=== PATIENT | male | born 1985 | race Caucasian/White ===

== ENCOUNTER 2019-03-24 10:30 | Emergency (ER) | payer MEDICAID ==
[~2019-03-24] VITALS: Ht 175.3 cm; Wt 60.8 kg
[2019-03-24 10:59] VITALS: BP 97/61
== END 2019-03-24 17:26 | disposition left against medical advice (07) ==
LOC: ER 10:30
DX: R21 Rash and other nonspecific skin eruption (principal); Z53.21 Procedure and treatment not carried out due to patient leaving prior to being seen by health care provider